=== PATIENT | female | born 1950 | race Caucasian/White ===

== ENCOUNTER 2018-07-20 09:17 | Day surgery (SDC) | payer MEDICARE ==
[2018-07-17 15:58] VITALS: BMI 26.2
[~2018-07-20 09:17] MED LIST: LACTATED RINGERS 1,000 ML IV SCH; LIDOCAINE 1% 20 ML VIAL (10MG/ML) FOR IV START INTRADERMA PRN
[2018-07-20 09:52] VITALS: RESP 18; TEMP 97.8
[2018-07-20] MEDS ORDERED: PROPOFOL 10 MG/ML 20 ML VIAL IV ONE (10:23)
[2018-07-20] MEDS ORDERED: LIDOCAINE 1% INJ 10MG/ML (20 ML MDV) ONE (10:23)
--- NOTE | 2018-07-20 11:31 | P.PCN ---
Date of Procedure: 07/20/18 Description of Procedure: BRIEF HISTORY: The patient is a pleasant 68-year-old female who presents for evaluation of change in bowel habits. Per the patient last colonoscopy was approximately 7 years ago in significant for polyps. She is here for evaluation of change in bowel habits and constipation. She reports that at home she has required Dulcolax therapy in order to have a bowel movement and has a sensation of incomplete evacuation. She denies any blood per rectum. PROCEDURE PERFORMED: Colonoscopy with polypectomy. PREOPERATIVE DIAGNOSIS: Change in bowel habits, last colonoscopy 7 years ago. ESTIMATED BLOOD LOSS: Minimal. IV sedation per Anesthesia. PROCEDURE: After informed consent was obtained, the patient, was brought into the endoscopy unit. IV sedation was administered by Anesthesia under continuous monitoring. Digital rectal examination was normal. Initially the Olympus CF- 190 flexible video colonoscope was then inserted in the rectum, gradually advanced into the cecum without any difficulty. Careful examination was performed as the scope was gradually being withdrawn. Ileocecal valve and the appendiceal orifice were visualized and appeared normal. Prep was fair. Mucosa of the cecum, ascending colon, transverse colon, descending colon, sigmoid colon , and rectum appeared normal. 6 mm descending colon polyp resected with cold snare. Retroflexion was performed in the rectum and no lesions were seen, internal hemorrhoids were noted. The patient tolerated the procedure well. IMPRESSION: Normal-appearing colon from rectum to cecum. 6 mm descending colon polyp. Internal hemorrhoids. Fair prep. RECOMMENDATIONS: Findings of this examination were discussed with the patient. Okay to resume diet. Would suggest a trial of MiraLAX therapy for constipation. Follow up with gastroenterology in one to 2 weeks. Repeat colonoscopy in 3 years due to fair prep or sooner if signs or symptoms develop.
[2018-07-20 12:00] VITALS: BP 103/72; PULSE 76
== END 2018-07-20 12:01 | disposition home or self-care (01) ==
LOC: ORWHC2ENDO 09:17
PROVIDERS: ATTEND Internal Medicine
DX: D12.4 Benign neoplasm of descending colon (principal); K59.00 Constipation, unspecified; K64.8 Other hemorrhoids; Z86.010 Personal history of colon polyps; I10 Essential (primary) hypertension; E78.5 Hyperlipidemia, unspecified; I71.9 Aortic aneurysm of unspecified site, without rupture; J44.9 Chronic obstructive pulmonary disease, unspecified; F17.210 Nicotine dependence, cigarettes, uncomplicated; Z79.82 Long term (current) use of aspirin; Z79.899 Other long term (current) drug therapy; Z88.8 Allergy status to other drugs, medicaments and biological substances; Z88.1 Allergy status to other antibiotic agents; Z91.013 Allergy to seafood; Z90.49 Acquired absence of other specified parts of digestive tract
CPT/HCPCS: 88305; 45385; J2001; J2704

== ENCOUNTER → 2018-10-11 | Outpatient (CLI) | payer MEDICARE ==
[2018-10-11 16:41] LABS: Blood Urea Nitrogen 20 mg/dL (7-17)
--- NOTE | 2018-10-12 04:25 | CT ---
EXAMINATION TYPE: CT angio tho/abd W Run Off DATE OF EXAM: 10/11/2018 COMPARISON: NONE HISTORY: 68-year-old female embolism and thrombosis. AAA TECHNIQUE: Contiguous axial scanning of the chest abdomen and pelvis with bilateral lower extremity r unoff following administration of 125 ml Isovue-370 IV contrast. Coronal/sagittal MIP reconstruction s performed. 3-D reconstructions generated on a dedicated independent workstation. CT DLP: 873.6 mGycm Automated exposure control for dose reduction was used. FINDINGS: CHEST: Heart normal size without pericardial effusion. A few scattered calcified mediastinal lymph nodes are present. No thoracic lymphadenopathy by CT size criteria. Strandy areas of atelectasis in the lower lungs. There is mild to moderate centrilobular emphysema. N o consolidation or pleural effusion. ABDOMEN: Tiny hiatal hernia. Some surgical material along the anterior abdominal wall of the right upper quadr ant. Cholecystectomy clips. Suspect mixing artifact within the left portal vein. Doppler ultrasound of the left portal vein can e xclude thrombus, refer to axial images 95 through 98. Subcentimeter hypodensity anterior mid liver to small for accurate CT characterization, probable tiny cyst. Cholecystectomy clips. No biliary ductal dilatation. Adrenal glands, right kidney, and pancreas show no gross abnormality. A couple calcified granulomas in the spleen and parapelvic cysts in the left kidney. No dilated small bowel, free fluid, or free air. Prominent 8 mm haydee hepatic and 7 mm gastrohepatic ligament lymph nodes. Probably reactive/post infl ammatory. Otherwise, no mesenteric or retroperitoneal lymphadenopathy. Moderate stool burden without pericolonic inflammatory change. PELVIS: Bladder urine distended. Uterus surgically absent. Ovaries not clearly seen. Pelvic phleboliths. No a bnormal fluid collection in the pelvis or pelvic lymphadenopathy. BONES: Degenerative changes of the knees. There is a partially calcified lesion along the margin of the left anterior lateral compartment joint space of the knee, probable loose body. Small left greater than right Felder cysts. Chronic appearing superior endplate deformities of T12 and L1. Facet arthropathy lower lumbar spine. Accentuated upper thoracic kyphosis. VASCULATURE: -Aortic root is ectatic at 3.5 cm. -Ascending aorta normal at 3.3 cm. -Conventional arch vessel branching anatomy. -Slightly ectatic distal aortic arch at 2.9 cm. -Upper descending thoracic aorta measures 2.8 cm, normal caliber. -Mid descending thoracic aorta dilates up to 3.5 cm. -Increasing tortuosity mid to lower descending thoracic aorta with aneurysm up to 4.1 cm distally. -Area at the thoracoabdominal junction measures 3.7 cm. -Aorta measures 4.1 cm at the level of the celiac axis with prominent mural-based plaque and thrombus along the posterior wall. -Aorta measures 3.6 cm at the level of the renal arteries with a mural based thrombus anteriorly and posteriorly. -Huertas bilateral renal arteries. -Aorta measures 3.7 cm just below the level of the renal arteries. -Aorta tapers to a more ectatic caliber of 2.8 cm. -Following this, there is aneurysmal dilatation extending to just above the bifurcation measuring 4.8 cm with prominent circumferential plaque and thrombus narrowing the patent lumen to 2.0 cm. Right: -Moderate atherosclerotic calcification throughout the iliac arteries with moderate to severe focal s tenosis proximal right external iliac artery. -Atherosclerotic calcification causing a moderate to severe focal stenosis in the right common femora l artery. -Additional scattered atherosclerotic calcification with moderate focal narrowing proximal SFA. -Scattered mild atherosclerotic calcification throughout the popliteal artery. -[id number] atherosclerotic calcification proximal right anterior tibial artery which shows run off into the foot. -Tibial peroneal trunk is patent. The peroneal artery becomes diminutive at the level of the mid leg and is seen faintly to just above the ankle. -The posterior tibial artery becomes diminutive at the distal leg and is seen faintly into the hindfo ot. Left: -Scattered atherosclerotic calcification throughout the left iliac arteries with mild segmental narro wing. -Moderate focal atherosclerotic narrowing left common femoral artery. -Moderate to severe atherosclerotic calcification origin of the profunda femoral artery. -Scattered mild atherosclerotic calcification throughout the superficial femoral artery. -Moderate focal atherosclerotic calcification mid popliteal artery. -Scattered mild atherosclerotic calcifications involving the trifurcation vessels. -Anterior tibial artery shows runoff into the foot. The peroneal artery becomes diminutive at the proximal third calf and is seen faintly to the distal t hird calf. -The posterior tibial artery becomes diminutive at the ankle but shows runoff into the hindfoot. IMPRESSION: 1. Possible mixing artifact within the left portal vein. Underlying thrombosis difficult to exclude g iven the appearance on arterial phase imaging. Recommend Doppler ultrasound of the left portal vein t o exclude thrombus. 2. Aneurysmal mid and distal descending thoracic aorta (mid 3.5 cm and distal 4.1 cm). 3. Diffusely aneurysmal abdominal aorta (thoracoabdominal junction 3.7 cm, 4.1 cm upper abdomen, 3.7 cm just below the renal arteries, and 4.8 cm infrarenal AAA). Variable areas of circumferential and p artially circumferential mural based plaque and thrombus. For example, at the level of the infrarenal AAA, the patent lumen is narrowed down to 2.0 cm. RIGHT: 4. Moderate to severe focal stenosis proximal right external iliac artery and right [employer]. Moderate foc al narrowing proximal SFA. 5. Mild to moderate atherosclerotic narrowing proximal anterior tibial artery which shows runoff into the foot. 6. The peroneal artery is seen faintly to just above the ankle. The posterior tibial artery becomes d iminutive at the distal leg and is seen faintly into the hindfoot. LEFT: 7. Moderate focal atherosclerotic narrowing left [employer] and moderate to severe at the origin of the prof unda femoral artery. 8. Moderate focal stenosis mid popliteal artery. Scattered mild atelectatic calcifications in the tri furcation vessels. 9. Anterior tibial artery shows runoff into the foot. 10. Peroneal artery is seen faintly to the distal third calf. The posterior tibial artery becomes dim inutive at the ankle but shows faint runoff into the hindfoot.
== END | disposition home or self-care (01) ==
LOC: RADCTMAIN 16:03
PROVIDERS: ATTEND Internal Medicine Interventional Cardiology
DX: I71.4 Abdominal aortic aneurysm, without rupture (principal); I71.2 Thoracic aortic aneurysm, without rupture; I70.0 Atherosclerosis of aorta; I74.10 Embolism and thrombosis of unspecified parts of aorta; I70.8 Atherosclerosis of other arteries; I70.203 Unspecified atherosclerosis of native arteries of extremities, bilateral legs
CPT/HCPCS: 82565; 84520; 75635; 71275; 36415; Q9967

== ENCOUNTER → 2018-11-28 | Outpatient (CLI) | payer MEDICARE ==
--- NOTE | 2018-11-28 13:32 | CT ---
EXAMINATION TYPE: CT abdomen wo con DATE OF EXAM: 11/28/2018 COMPARISON: 10/11/2018 HISTORY: Abdominal pain, nausea and diarrhea. CT DLP: 399 mGycm Automated exposure control for dose reduction was used. TECHNIQUE: Helical acquisition of images was performed from the lung bases through the top of iliac crest to include entire abdomen. CONTRAST: Performed with Oral Contrast and without IV contrast. FINDINGS: LUNG BASES: Subsegmental linear changes most typical scar or atelectasis. LIVER/GB: Previous cholecystectomy changes are noted. PANCREAS: No significant abnormality is seen. SPLEEN: Splenic granuloma noted. ADRENALS: No significant abnormality is seen. KIDNEYS: Parapelvic left renal cyst suspected. No renal calcifications or hydronephrosis. BOWEL: Bowel gas pattern nonspecific. LYMPH NODES: No significant abnormality is appreciated. OSSEOUS STRUCTURES: Superior endplate compression deformities of T12 and L1 appear chronic. FREE AIR: No free air is visualized. OTHER: There is a thoracic and abdominal aortic aneurysm. At the level the diaphragmatic hiatus it me asures 4.1 x 4 cm and previously measured 3.8 cm in greatest dimension. The distal thoracic aorta kenia sures 4.3 cm in greatest dimension and producing measured 4.1 cm in greatest dimension. The level the celiac plexus measures approximately 4 x 4 centimeters which is similar to the prior exam. Below lev el the renal arteries with maximal dimension is seen above the aortic bifurcation measuring 4.5 x 4.3 cm which is similar to the prior exam. Extensive atherosclerotic changes of the vasculature noted. 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 Previous surgery involving the anterior ab dominal wall. IMPRESSION: 1. Multilobulated thoracic and abdominal aortic aneurysm as measured above does demonstrate mild incr emental increase in size relative to the prior exam correlate clinically
== END ==
LOC: RADCTMAIN 12:06
PROVIDERS: ATTEND Physician Assistant
DX: I71.4 Abdominal aortic aneurysm, without rupture (principal); I71.2 Thoracic aortic aneurysm, without rupture; R19.7 Diarrhea, unspecified; R10.84 Generalized abdominal pain; R11.2 Nausea with vomiting, unspecified; R53.83 Other fatigue
CPT/HCPCS: 36415; 74150

== ENCOUNTER 2018-12-31 17:08 | Emergency (ER) | payer MEDICARE ==
[2018-12-31 17:19] VITALS: TEMP 97.7
--- NOTE | 2018-12-31 17:47 | ED ---
General Adult HPI - General Chief complaint: Extremity Problem,Nontraumatic Stated complaint: poss blood clot left arm Time Seen by Provider: 12/31/18 17:29 Source: patient Mode of arrival: ambulatory Limitations: no limitations - History of Present Illness Initial comments: 68-year-old female presenting with left-sided chest pain, left arm pain and swel ling, and worsening abdominal pain. Patient states last week she began to develop worsening crampy abdominal pain. She denies F/C, nausea or vomiting. States she has been having diarrhea for about 6 weeks now that is currently improving. States she has a known AAA that is about 4.2 cm. Three days prior she was mowing the lawn when she began to develop substernal chest pressure radiating to her left arm. She states it occurred after she attempted to push really hard to move the the muskrat trapper. She states she then noticed today that her left arm appeared swollen. She admits to previous history of DVT while in college and she is unsure if it was provoked or not. She is not currently on blo od thinners. She denies any active cancer, recent surgery, hormone use. Patient states she presented to an outside emergency department but that they did not have ultrasound to evaluate her arm. She denies previous history of VT, states she did have a normal stress test 3 months prior, and denies any history of stent placement. She denies any lower extremity swelling or weakness. Denies any bladder symptoms. - Related Data Home Medications Medication Instructions Recorded Confirmed Albuterol Inhaler [Ventolin Hfa 1 - 2 puff INHALATION RT-Q6H PRN 07/17/18 12/31/18 Inhaler] Aspirin 81 mg PO DAILY 07/17/18 12/31/18 Benazepril HCl 20 mg PO TID 07/17/18 12/31/18 Cholecalciferol [Vitamin D3] 1,000 unit PO DAILY 07/17/18 12/31/18 Diltiazem HCl [Cartia Xt] 120 mg PO DAILY 07/17/18 12/31/18 Hydrochlorothiazide [Hydrodiuril] 25 mg PO DAILY 07/17/18 12/31/18 Pravastatin Sodium [Pravachol] 40 mg PO HS 07/17/18 12/31/18 Venlafaxine HCl ER [Effexor Xr] 150 mg PO DAILY 07/17/18 12/31/18 traZODone HCL [TraZODone HCl] 25 mg PO HS 07/20/18 12/31/18 Omeprazole 20 mg PO DAILY 12/31/18 12/31/18 Tiotropium 18 Mcg/Puff [Spiriva] 2 puff INHALATION RT-DAILY 12/31/18 12/31/18 clonazePAM [KlonoPIN] 0.5 mg PO DAILY 12/31/18 12/31/18 Allergies Allergy/AdvReac Type Severity Reaction Status Date / Time oxytetracycline Allergy skin Verified 12/31/18 18:12 [From Terramycin] blisters varenicline [From Chantix] AdvReac Hallucinati Verified 12/31/18 18:12 ons catfish Allergy Unknown Uncoded 07/17/18 15:57 Review of Systems ROS Statement: Those systems with pertinent positive or pertinent negative responses have been documented in the HPI. Review of Systems Constitutional: Denies fever, chills Eyes: Denies change in vision, Denies pain Ears, nose, mouth, throat: Denies headaches, Denies sore throat Cardiovascular: Positive chest pain. Denies palpitations Respiratory: Denies shortness of breath, Denies cough Gastrointestinal: Denies abdominal pain. Denies nausea, vomiting, Positive diarrhea. Genitourinary: Denies hematuria, Denies infections Musculoskeletal: Positive left arm pain, Denies swelling Integumentary: Denies rash is worsening Neurological: Denies headache, focal weakness, focal numbness Psychiatric: Denies anxiety, Denies depression Hematologic/Lymphatic: Denies easy bleeding or bruising ROS Other: All systems not noted in ROS Statement are negative. Past Medical History Past Medical History: COPD, Hypertension Additional Past Medical History / Comment(s): AAA History of Any Multi-Drug Resistant Organisms: None Reported Past Surgical History: Hysterectomy Past Psychological History: No Psychological Hx Reported Smoking Status: Current every day smoker Past Alcohol Use History: None Reported Past Drug Use History: None Reported General Exam - General Exam Comments Initial Comments: General: Awake, alert, No acute Distress HENT: Normocephalic. Atraumatic Eyes: PERRL. EOMI. No scleral icterus. No injected conjunctiva Neck: Full ROM Chest/Lungs: Clear to auscultation bilaterally. No wheezing, rhonchi, or rales Cardiac: Regular rate, rhythm. No murmurs or rubs. No abdominal bruit. 2+ radial pulses. 2+ DP pulses. Extremities warm and well perfused Abdomen/GI: Soft, nontender, nondistended. No rebound, guarding, or rigidity. Musculoskeletal: Full ROM. No edema. No swelling of left upper extremity or deformity. C5-T1 sensation intact bilaterally. Skin: Warm, dry, intact Neurologic: A/Ox3, no weakness, no sensory deficit, no abnormal gait, no coordination deficit Limitations: no limitations Course Vital Signs 12/31/18 12/31/18 17:15 20:29 Temperature 97.7 F Pulse Rate 79 68 Respiratory 18 16 Rate Blood Pressure 139/84 137/86 O2 Sat by Pulse 95 96 Oximetry EKG Findings - EKG Comments: EKG Findings:: EKG shows a sinus rhythm and rate 74 bpm. MT interval 170 ms, QRS duration 98 ms, QT/QTC 44/479.No ST segment elevation, depression. No prolonged QT/QTc or MT interval. No dysrythmia noted. Medical Decision Making - Medical Decision Making 68-year-old female presenting with swelling of her arm and chest pain. Initial exam the patient is awake, alert, no acute distress. VSS. Patient's laboratory workup is negative for acute process. Her left upper extremity ultrasound was negative for DVT. A CT was done and the patient's thoracic and abdominal aortic aneurysms were unchanged in size. Extensive thrombus also seen in her aorta was unchanged. There was plaque formation and possible occlusion of the left internal artery, however imaging showed that there was collateral flow. Patient neurovascularly was intact and was not having any numbness or pain to the area supplied by the internal iliac artery. She did state that she was having intermittent leg cramping, however she states she has seen Dr. Herrera in the past and that she can follow-up with him this week. The patient's chest pain resolved while in the department. She was having some left arm pain however this could've been secondary to her injury while pushing the muskrat trapper. She had no swelling or deformity of the left upper extremity. I discussed with the patient admission versus discharge. In lieu of her recent negative stress test, improvement of her symptoms, and her aneurysms being unchanged, the patient has elected to be discharged home and she will call Dr. Herrera in the morning. No further emergent workup indicated. The patient was given return to ED instructions. They were instructed to follow up with their primary care provider. Stable for discharge at this time. - Lab Data Result diagrams: 12/31/18 17:55 12/31/18 17:55 Lab Results 12/31/18 12/31/18 12/31/18 Range/Units 17:55 17:55 17:55 WBC 5.8 (3.8-10.6) k/uL RBC 4.54 (3.80-5.40) m/uL Hgb 14.0 (11.4-16.0) gm/dL Hct 43.6 (34.0-46.0) % MCV 96.2 (80.0-100.0) fL MCH 30.9 (25.0-35.0) pg MCHC 32.1 (31.0-37.0) g/dL RDW 12.7 (11.5-15.5) % Plt Count 172 (150-450) k/uL Neutrophils % 62 % Lymphocytes % 28 % Monocytes % 8 % Eosinophils % 1 % Basophils % 0 % Neutrophils # 3.5 (1.3-7.7) k/uL Lymphocytes # 1.6 (1.0-4.8) k/uL Monocytes # 0.5 (0-1.0) k/uL Eosinophils # 0.0 (0-0.7) k/uL Basophils # 0.0 (0-0.2) k/uL Sodium 139 (137-145) mmol/L Potassium 3.1 L (3.5-5.1) mmol/L Chloride 102 (98-107) mmol/L Carbon Dioxide 29 (22-30) mmol/L Anion Gap 8 mmol/L BUN 12 (7-17) mg/dL Creatinine 0.70 (0.52-1.04) mg/dL Est GFR (CKD-EPI)AfAm >90 (>60 ml/min/1.73 sqM) Est GFR (CKD-EPI)NonAf 88 (>60 ml/min/1.73 sqM) Glucose 91 (74-99) mg/dL Calcium 9.4 (8.4-10.2) mg/dL Troponin I (0.000-0.034) ng/mL NT-Pro-B Natriuret Pep 48 pg/mL 12/31/18 Range/Units 17:55 WBC (3.8-10.6) k/uL RBC (3.80-5.40) m/uL Hgb (11.4-16.0) gm/dL Hct (34.0-46.0) % MCV (80.0-100.0) fL MCH (25.0-35.0) pg MCHC (31.0-37.0) g/dL RDW (11.5-15.5) % Plt Count (150-450) k/uL Neutrophils % % Lymphocytes % % Monocytes % % Eosinophils % % Basophils % % Neutrophils # (1.3-7.7) k/uL Lymphocytes # (1.0-4.8) k/uL Monocytes # (0-1.0) k/uL Eosinophils # (0-0.7) k/uL Basophils # (0-0.2) k/uL Sodium (137-145) mmol/L Potassium (3.5-5.1) mmol/L Chloride (98-107) mmol/L Carbon Dioxide (22-30) mmol/L Anion Gap mmol/L BUN (7-17) mg/dL Creatinine (0.52-1.04) mg/dL Est GFR (CKD-EPI)AfAm (>60 ml/min/1.73 sqM) Est GFR (CKD-EPI)NonAf (>60 ml/min/1.73 sqM) Glucose (74-99) mg/dL Calcium (8.4-10.2) mg/dL Troponin I <0.012 (0.000-0.034) ng/mL NT-Pro-B Natriuret Pep pg/mL Disposition Clinical Impression: Arm pain, Chest pain Disposition: HOME SELF-CARE Condition: Good Instructions (If sedation given, give patient instructions): Chest Pain (ED), Nonruptured Abdominal Aortic Aneurysm (DC), Thoracic Aortic Aneurysm (ED) Is patient prescribed a controlled substance at d/c from ED?: No Referrals: Jesu Peres DO [Primary Care Provider] - 1-2 days Leonel Herrera MD [STAFF PHYSICIAN] - 1-2 days
--- NOTE | 2018-12-31 18:16 | XR ---
EXAMINATION TYPE: XR chest 2V DATE OF EXAM: 12/31/2018 COMPARISON: NONE HISTORY: Swelling and redness TECHNIQUE: Frontal and lateral views of the chest are obtained. FINDINGS: Heart is normal. Lungs are clear of infiltrate. Thoracic aorta is atheromatous. There is n o pleural effusion. Bony thorax is intact. IMPRESSION: No active cardiopulmonary disease. Atheromatous aorta.
[2018-12-31 18:19] LABS: Basophils % (A) 0 %; Eosinophils % (A) 1 %; HCT 43.6 % (34.0-46.0); Lymphocytes # (A) 1.6 k/uL (1.0-4.8); Lymphocytes % (A) 28 %; MCH 30.9 pg (25.0-35.0); MCHC 32.1 g/dL (31.0-37.0); MCV 96.2 fL (80.0-100.0); Mean Platelet Volume 7.2; Monocytes # (A) 0.5 k/uL (0-1.0); Monocytes % (A) 8 %; Neutrophils # (A) 3.5 k/uL (1.3-7.7); Neutrophils % (A) 62 %; Platelet Count 172 k/uL (150-450); RBC 4.54 m/uL (3.80-5.40); RDW 12.7 % (11.5-15.5); WBC 5.8 k/uL (3.8-10.6)
[2018-12-31 18:28] LABS: African American GFR (CKD) >90 (>60 ml/min/1.73 sqM); Anion Gap 8 mmol/L; Blood Urea Nitrogen 12 mg/dL (7-17); Calcium 9.4 mg/dL (8.4-10.2); Carbon Dioxide 29 mmol/L (22-30); Chloride 102 mmol/L (98-107); Glucose 91 mg/dL (74-99); Potassium 3.1 mmol/L (3.5-5.1); Sodium 139 mmol/L (137-145)
--- NOTE | 2018-12-31 19:28 | CT ---
EXAMINATION TYPE: CT angio thor/abd pel aorta DATE OF EXAM: 12/31/2018 COMPARISON: 10/11/2018 HISTORY: Chest and left arm pain. Hx of AAA CT DLP: 1155.6 mGycm. Automated Exposure Control for Dose Reduction was Utilized. CONTRAST: CT scan of the thorax, abdomen and pelvis is performed without and with IV Contrast, patient injected with 100 mL of Isovue 370. FINDINGS: There are 3-D post processed images. The lungs are clear of consolidation. There is patchy atelectasi s at the lung bases. There is aneurysm of the thoracic aorta. The descending thoracic aorta measures up to 4 cm. There is aneurysm of the upper abdominal aorta that measures up to 4.6 cm. There is throm bus on the posterior wall. There is patency of the celiac artery and superior mesenteric artery. Ther e is aneurysm of the lower abdominal aorta that measures up to 4.5 cm. There is thrombus throughout t he abdominal aorta. There is patency of the common iliac arteries. There is bilateral patency of the external iliac and femoral arteries. There appears to be complete occlusion of the left internal umang c artery near its origin. There is arterial flow in the distal branches of the left internal iliac ar ortiz. This could be collateral flow. There is bilateral arterial flow in the femoral arteries at the left and right groin. There is bilateral patency of the renal arteries. There are clips from cholecystectomy. Liver and spleen appear normal. Bile ducts are not dilated. Klein creas appears normal. Stomach appears normal. There is no adrenal mass. Kidneys show satisfactory contrast opacification. There is apparent left re nal parapelvic cyst. Ureters are not dilated. There is no ascites. Bladder distends smoothly. There i s no inguinal hernia. There is no free fluid in the pelvis. There is no mesenteric edema. There is no ascites. There is no sign of free air. There are mild compression fractures of T12 and L1 unchanged compared to old exam. IMPRESSION: There is thoracic aortic aneurysm not changed in size compared to old exam. There is abdominal aortic aneurysm also not changed in size allowing for error of measurement. Extensive thrombus in the abdom inal aortic aneurysm without change. No evidence of dissection. There is plaque formation and probably complete occlusion left internal iliac artery that is a change compared to last exam. No evidence of arterial dissection. There is some mild atelectasis at the lung bases increased compared to old exam.
--- NOTE | 2018-12-31 19:34 | US ---
EXAMINATION TYPE: US venous doppler duplex UE DATE OF EXAM: 12/31/2018 COMPARISON: NONE CLINICAL HISTORY: Pain. left arm swelling and pain, h/o left leg dvt 50 yrs ago, not on thinners SIDE PERFORMED: Left Right Arm: incidental finding at area of patient bruising/palp, patient states IV catheter never ca me out of IV site at right forearm cephalic At bruising echogenic lumen is seen within patent, com pressible cephalic at forearm. Left Arm: Appears negative for DVT, patient states swelling was much better by the time I did exam IMPRESSION: No evidence of deep venous thrombosis in the left arm.
[2018-12-31 20:33] VITALS: BP 137/86; PULSE 68; RESP 16
== END 2018-12-31 20:35 | disposition home or self-care (01) ==
LOC: EC 17:08
DX: M79.602 Pain in left arm (principal); I71.2 Thoracic aortic aneurysm, without rupture; I71.4 Abdominal aortic aneurysm, without rupture; I74.09 Other arterial embolism and thrombosis of abdominal aorta; J44.9 Chronic obstructive pulmonary disease, unspecified; I10 Essential (primary) hypertension; F17.200 Nicotine dependence, unspecified, uncomplicated; Z79.82 Long term (current) use of aspirin; Z79.899 Other long term (current) drug therapy; Z88.1 Allergy status to other antibiotic agents; Z88.8 Allergy status to other drugs, medicaments and biological substances; Z91.013 Allergy to seafood
CPT/HCPCS: 99285; 36415; 93005; 83880; 80048; 84484; 85025; 71046; 93971; 71275; 74174; Q9967

== ENCOUNTER 2019-02-05 06:18 | Day surgery (SDC) | payer MEDICARE ==
[2019-01-31 10:23] VITALS: BMI 23.8
[2019-02-05] MEDS ORDERED: SODIUM CHLORIDE 0.9% 1,000 ML in EMPTY BAG 1 BAG IV ONE (06:46)
[2019-02-05] MEDS ORDERED: NITROGLYCERIN SL TABS 0.4 MG TAB SUBLINGUAL PRN ×2 (06:46→09:51)
[2019-02-05] MEDS ORDERED: ALPRAZolam 0.5 MG TAB PO PRN (06:46)
[2019-02-05] MEDS ORDERED: ALPRAZolam 0.25 MG TAB PO PRN (06:46)
[2019-02-05] MEDS ORDERED: ASPIRIN 325 MG TAB PO STA (06:46)
[2019-02-05] MEDS ORDERED: ATORVASTATIN 80 MG TAB PO STA (06:46)
[2019-02-05] MEDS ORDERED: ASPIRIN 81 MG ONE (07:13)
[2019-02-05] MEDS ORDERED: VERAPAMIL 2.5 MG/ML 2 ML AMP ONE (08:00)
[2019-02-05] MEDS ORDERED: LIDOCAINE 1% INJ 10MG/ML (20 ML MDV) ONE (08:01)
[2019-02-05] MEDS ORDERED: HEPARIN SODIUM 1,000 UN/ML (10ML VL) ONE (08:01)
[2019-02-05] MEDS ORDERED: MIDAZOLAM PF (FBP) 2 MG/2 ML VIAL IV ONE (08:22)
[2019-02-05] MEDS ORDERED: POTASSIUM CHLORIDE ER 20 MEQ TAB.ER PO STA (08:24)
[2019-02-05] MEDS ORDERED: LIDOCAINE 1% INJ 10MG/ML (20 ML MDV) SQ ONE (08:27)
[2019-02-05] MEDS ORDERED: VERAPAMIL SYRINGE (5 MG/10 ML) INTRAARTER ONE (08:28)
[2019-02-05] MEDS: VERAPAMIL SYRINGE (5 MG/10 ML) INTRAARTER ONE ×2 (08:28→09:37)
[2019-02-05] MEDS ORDERED: CLOPIDOGREL 75 MG TAB ONE (08:39)
[2019-02-05] MEDS ORDERED: CLOPIDOGREL 75 MG TAB PO ONE (08:43)
[2019-02-05] MEDS ORDERED: IOPAMIDOL-370 125ML BTL INJ ONE (09:12)
[2019-02-05] MEDS: NITROGLYCERIN 1000MCG/10ML SYRINGE INTRACORON ONE ×2 (09:23→09:34)
[2019-02-05] MEDS ORDERED: IOPAMIDOL-370 100ML BTL INJ ONE (09:35)
[2019-02-05] MEDS ORDERED: ATROPINE SULFATE 0.1 MG/ML 10ML SYRINGE IV PRN (09:51)
[2019-02-05] MEDS ORDERED: RX INFO: IV CONTRAST WAS GIVEN 1 EACH MISC MISCELLANE PRN (09:51)
[2019-02-05] MEDS ORDERED: ZOLPIDEM 5 MG TAB PO PRN (09:51)
[2019-02-05] MEDS ORDERED: MAG HYDROX/AL HYDROX/SIMETH 30 ML CUP PO PRN (09:51)
[2019-02-05] MEDS ORDERED: SODIUM CHLORIDE 0.9% 1,000 ML IV SCH (10:00)
--- NOTE | 2019-02-05 10:36 | CC ---
CARDIAC CATHETERIZATION REPORT DATE OF SERVICE: 2018 PERFORMING PHYSICIAN: Leonel Herrera MD, Telephone Maintainer. PROCEDURE PERFORMED: 1. Selective right and left coronary angiogram. 2. Left heart catheterization. 3. An atherectomy of the left anterior descending artery using the orbital atherectomy device from [employer]. 4. Successful stenting of the mid left anterior descending artery using 2.75 x 23 mm Xience SHASHA with an excellent angiographic results and reduction of stenosis from 99% to 0%. INDICATION: This is a 68-year-old female patient who sees Dr. Delgado in the office as an outpatient with history of peripheral arterial disease, hypertension, dyslipidemia, and significant history of smoking, who was also diagnosed recently with possible aortic dissection, was experiencing symptoms of chest discomfort concerning for angina. The right radial heart catheterization was scheduled. APPROACH: Right radial artery. COMPLICATION: None. LEVEL OF SEDATION: Moderate with sedation length of 72 minutes. PROCEDURE DESCRIPTION: After obtaining an informed consent, the patient was brought to the cardiac botany laboratory assistant. The right radial artery was cannulated using micropuncture technique, the micropuncture wire passed easily, then I placed a 6-Green[place] sheath in the right radial artery. After that, I gave the patient 2 mg of verapamil IA and 6000 units of heparin IV. Selective right and left coronary angiogram were performed using JR3.5 and JL3 catheters. Left heart catheterization was performed using the JR3.5 catheter which crossed the aortic valve, then I did pullback across aortic valve after flushing the catheter. The procedure was completed without any complication. After that, I did intervene on the LAD, please see a separate paragraph for that. SELECTIVE CORONARY ANGIOGRAM: 1. The right coronary artery is a large caliber vessel and is a codominant vessel. The proximal right appeared to have mild disease only. The mid right is chronically occluded on short segment and fills by collaterals from the left coronary system. 2. The left main is angiographically normal, it bifurcates into the left circumflex and left anterior descending artery. 3. The left circumflex is a large caliber vessel, it is a nondominant vessel. The proximal circumflex appeared to have mild disease only. The mid circumflex has a lesion appeared to be in the range of 50%. The circumflex distally appeared to be normal and bifurcates into PDA and PLV branches, both appeared to be angiographically normal. 4. The LAD, the proximal LAD appeared to be angiographically normal. It gives rise into a large diagonal branch which appeared to be angiographically normal. The mid LAD has a lesion, appeared to be in the range of 99.9%. The LAD distally appeared to be angiographically normal. 5. HEMODYNAMICS - The left ventricular end-diastolic pressure was about 10 mmHg without significant gradient across the aortic valve. 6. PCI OF THE LAD: Anticoagulation was initiated and completed with heparin with continuous ACT monitoring throughout the procedure. I did an ACT check before I started the angioplasty and ACT came in to be therapeutic and because of that, I continued the procedure using only heparin. I did engage the left main using an XP3 guide. I did wire the LAD using two whisper wires. One whisper wire was long and one whisper wire was short. I tried doing balloon angioplasty of the LAD using 2.0 x 12 and then 2 5 x 12 and then 2.5 x 8 mm NC balloon, but the balloon will not crack the lesion in the mid LAD because the lesion was quite calcified. At that point, I decided to do atherectomy of the LAD. At that point, I pulled the short whisper wire out and I kept the long whisper wire in. I did exchange my long Whisper wire into Viper Wire using the Teleport catheter. After that, I did atherectomy of the LAD using the orbital atherectomy device from [facility] where I did two runs of atherectomy under the lower low speed. After that, I did balloon angioplasty at this point, again using the 2.5 x 8 mm NC balloon and I was able to crack the lesion with the balloon at that point. Then I did deploy 2.75 x 23 mm Xience SHASHA where the stent was positioned under fluoroscopy guidance and deployed under 14 atmospheres for 20 seconds. The following angiogram showed great angiographic results and the procedure was completed without any complication. CONCLUSION: 1. 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 2. Critical disease involving the mid left anterior descending artery. 3. Mild disease involving the left circumflex coronary artery. 4. Successful atherectomy, balloon angioplasty, and stenting of the mid LAD as described above. POSTPROCEDURE MANAGEMENT: 1. Dual anti-platelet therapy. 2. Risk factors modifications. 3. Follow up with the patient. MMODL / IJN: [id number] /
--- NOTE | 2019-02-05 10:45 | LTR ---
DATE OF SERVICE: 02/05/2019 RE: Mariel Syed Dear Dr. Peres; Ms. Mariel Syed underwent today a heart catheterization and that revealed critical disease involving the mid left anterior descending artery. She underwent successful stenting of the LAD with good angiographic results and without any complication. I want to thank you for allowing us to participate in her care and please do not hesitate to call if you have any question or concern. Sincerely, MD BISMARK [place] / SHARIFAN: [id number] /
[2019-02-05] MEDS: LISINOPRIL 20 MG TAB PO SCH ×2 (16:43→22:25)
[2019-02-05] MEDS ORDERED: traZODone HCL 50 MG TAB PO SCH (21:00)
[2019-02-05] MEDS ORDERED: PRAVASTATIN SODIUM 40 MG TAB PO SCH (21:00)
[2019-02-06 06:51] LABS: Basophils % (A) 0 %; Eosinophils # (A) 0.1 k/uL (0-0.7); Eosinophils % (A) 1 %; HCT 39.4 % (34.0-46.0); HGB 12.8 gm/dL (11.4-16.0); Lymphocytes # (A) 1.3 k/uL (1.0-4.8); Lymphocytes % (A) 22 %; MCH 31.4 pg (25.0-35.0); MCHC 32.5 g/dL (31.0-37.0); MCV 96.7 fL (80.0-100.0); Monocytes # (A) 0.5 k/uL (0-1.0); Monocytes % (A) 9 %; Neutrophils # (A) 3.8 k/uL (1.3-7.7); Neutrophils % (A) 66 %; Platelet Count 164 k/uL (150-450); RBC 4.08 m/uL (3.80-5.40); RDW 12.7 % (11.5-15.5); WBC 5.8 k/uL (3.8-10.6)
[2019-02-06 07:03] LABS: African American GFR (CKD) >90 (>60 ml/min/1.73 sqM); Anion Gap 2 mmol/L; Blood Urea Nitrogen 18 mg/dL (7-17); Calcium 8.8 mg/dL (8.4-10.2); Carbon Dioxide 29 mmol/L (22-30); Chloride 105 mmol/L (98-107); Glucose 89 mg/dL (74-99); Non-African American GFR(CKD) 84 (>60 ml/min/1.73 sqM); Potassium 3.7 mmol/L (3.5-5.1); Sodium 136 mmol/L (137-145)
--- NOTE | 2019-02-06 08:04 | DS ---
DISCHARGE SUMMARY ADMISSION DATE: February 05, 2019. DISCHARGE DATE: February 06, 2019, BRIEF HISTORY: This is a pleasant 68-year-old female patient who sees Dr. Delgado in the office as an outpatient who underwent yesterday a heart catheterization from right radial approach. The heart catheterization revealed severe disease involving the mid left anterior descending artery where the patient underwent an atherectomy, balloon angioplasty and stenting of the LAD with good angiographic results and without any complication. On followup with her today, she is doing good and she is asymptomatic. She does have good right radial pulse. The patient is going to be discharged home on dual antiplatelet therapy and follow up with Dr. Delgado in the office in a week. MMODL / IJN: [id number] /
[2019-02-06] MEDS: LISINOPRIL 20 MG TAB PO SCH (08:11)
[2019-02-06 08:15] VITALS: BP 122/72; RESP 16; TEMP 98.3
[2019-02-06] MEDS: IPRATROPIUM 0.5 MG/2.5 ML NEBU INHALATION SCH ×2 (08:32→11:33)
[2019-02-06 08:38] VITALS: PULSE 74
[2019-02-06] MEDS ORDERED: DILTIAZEM CD 120 MG CAP.ER.24H PO SCH (09:00)
[2019-02-06] MEDS ORDERED: CHOLECALCIFEROL 1,000 UNIT TAB PO SCH (09:00)
[2019-02-06] MEDS ORDERED: CLOPIDOGREL 75 MG TAB PO SCH (09:00)
[2019-02-06] MEDS ORDERED: HYDROCHLOROTHIAZIDE 25 MG TAB PO SCH (09:00)
[2019-02-06] MEDS ORDERED: clonazePAM 0.5 MG TAB PO SCH (09:00)
[2019-02-06] MEDS ORDERED: ASPIRIN 81 MG PO SCH (09:00)
[2019-02-06] MEDS ORDERED: VENLAFAXINE HCL ER 150 MG CAP PO SCH (09:00)
== END 2019-02-06 13:15 | disposition home or self-care (01) ==
LOC: CATHCVL 06:18 → 3SCARD 09:39 → CATHCVL 02-06 13:15
PROVIDERS: ATTEND Internal Medicine Interventional Cardiology
DX: I25.110 Atherosclerotic heart disease of native coronary artery with unstable angina pectoris (principal); I25.84 Coronary atherosclerosis due to calcified coronary lesion; I25.82 Chronic total occlusion of coronary artery; I10 Essential (primary) hypertension; I71.4 Abdominal aortic aneurysm, without rupture; I73.9 Peripheral vascular disease, unspecified; E78.5 Hyperlipidemia, unspecified; F17.210 Nicotine dependence, cigarettes, uncomplicated; Z82.49 Family history of ischemic heart disease and other diseases of the circulatory system; Z79.82 Long term (current) use of aspirin; Z79.899 Other long term (current) drug therapy
CPT/HCPCS: 94640; 93458; 80048; 84132; 85025; C9602; C1769 ×4; C1725 ×3; C1887; C1714; C1874; C1894; J2001; J1644; Q9967 ×2; J2250